=== PATIENT | female | born 1995 | race Caucasian/White ===

== ENCOUNTER 2017-12-04 05:37 | Day surgery (SDC) | payer OTHER ==
[2017-12-01 12:19] LABS: HEMATOCRIT 37.6 % (36.0-47.0); MEAN CORPUSCULAR HEMOGLOBIN 23.8 pg (27.0-33.4); MEAN CORPUSCULAR VOLUME 75 fl (80-97); PLATELET COUNT 251 10^3/uL (150-450); RED BLOOD COUNT 5.04 10^6/uL (3.72-5.28); RED CELL DISTRIBUTION WIDTH 15.6 % (11.5-14.0); WHITE BLOOD COUNT 4.7 10^3/uL (4.0-10.5)
[2017-12-01 12:20] LABS: APPEARANCE,URINE CLEAR; BILIRUBIN,URINE NEGATIVE (NEGATIVE); COLOR,URINE YELLOW; GLUCOSE, URINE NEGATIVE (NEGATIVE); KETONES,URINE NEGATIVE (NEGATIVE); LEUKOCYTE ESTERASE,URINE NEGATIVE (NEGATIVE); NITRITE,URINE NEGATIVE (NEGATIVE); PROTEIN,URINE NEGATIVE (NEGATIVE); URINE SPECIFIC GRAVITY 1.023; UROBILINOGEN,URINE NEGATIVE mg/dL (<2.0)
[2017-12-01 12:28] LABS: ALANINE AMINOTRANSFERASE 26 U/L (9-52); ALBUMIN 4.3 g/dL (3.5-5.0); ALKALINE PHOSPHATASE 42 U/L (38-126); ANION GAP 13 (5-19); ASPARTATE AMINO TRANSFERASE 17 U/L (14-36); BILIRUBIN,DIRECT 0.2 mg/dL (0.0-0.4); BILIRUBIN,TOTAL 0.6 mg/dL (0.2-1.3); BLOOD UREA NITROGEN 13 mg/dL (7-20); CARBON DIOXIDE 25 mmol/L (22-30); CHLORIDE 107 mmol/L (98-107); GLUCOSE 86 mg/dL (75-110); SODIUM 145.3 mmol/L (137-145); TOTAL PROTEIN 6.9 g/dL (6.3-8.2)
[~2017-12-04 05:37] MED LIST: CEFAZOLIN 1 GM/D5W RTU 1 GM/50 ML RTUPB IV PRN; LACTATED RINGERS 1000 ML IV PRN; LIDOCAINE 0.5% INJ-PF (5 MG/ML) 50 ML SDV SUBCUT PRN
[2017-12-04] MEDS ORDERED: BUPIVACAINE HCL 0.25 % INJ/PF (2.5 MG/1 ML) 30 ML VIAL ONE (06:31)
[2017-12-04] MEDS ORDERED: MIDAZOLAM 2 MG/2 ML INJ ONE (07:19)
[2017-12-04] MEDS ORDERED: DEXAMETHASONE SOD PHOSPHATE INJ 4 MG/1 ML VIAL ONE (07:19)
[2017-12-04] MEDS ORDERED: ONDANSETRON HCL INJ/PF 4 MG/2 ML SDV ONE (07:19)
[2017-12-04] MEDS ORDERED: FENTANYL CITRATE INJ/PF 100 MCG/2 ML AMPUL ONE (07:19)
[2017-12-04] MEDS ORDERED: PROPOFOL INJ 200 MG/20 ML VIAL IV ONE (07:19)
[2017-12-04] MEDS ORDERED: HYDROMORPHONE HCL INJ/PF 2 MG/ML AMPULE ONE (07:20)
[2017-12-04] MEDS ORDERED: PROMETHAZINE HCL INJ 25 MG/1 ML VIAL IV PRN ×3 (08:02→09:16)
[2017-12-04] MEDS ORDERED: MORPHINE SULFATE 10 MG/ML INJ IV PRN (08:02)
[2017-12-04] MEDS ORDERED: MEPERIDINE HCL/PF INJ 25 MG/1 ML DISP.SYRIN IV PRN (08:02)
[2017-12-04] MEDS ORDERED: OXYCODONE-ACETAMINOPHEN 5-325 MG TABLET PO PRN ×4 (08:02→09:15)
[2017-12-04] MEDS ORDERED: DIPHENHYDRAMINE HCL 50 MG/ML VIAL IV PRN (08:02)
[2017-12-04] MEDS ORDERED: FENTANYL CITRATE INJ/PF 100 MCG/2 ML AMPUL IV PRN ×3 (08:02)
[2017-12-04] MEDS ORDERED: MEPERIDINE HCL/PF INJ 25 MG/1 ML DISP.SYRIN ONE (08:40)
[2017-12-04] MEDS ORDERED: OXYCODONE-ACETAMINOPHEN 5-325 MG TABLET ONE (09:23)
[2017-12-04 10:29] VITALS: BP 109/65
--- NOTE | 2017-12-04 11:11 | OPERATIVE REPORT E ---
Operative Report NAME: MARYLOU GASCA : 1995 AGE: 22Y DATE OF SURGERY: 12/04/2017 ROOM: PREOPERATIVE DIAGNOSIS: Pelvic pain. POSTOPERATIVE DIAGNOSIS: Pelvic pain. There were no clinical findings. OPERATION: D and C, laparoscopy. SURGEON: BAKARI FLOWERS M.D. ANESTHESIA: General with 0.25% Marcaine. ESTIMATED BLOOD LOSS: 30 mL. PERTINENT HISTORY AND OPERATIVE FINDINGS: This is a 22-year-old, 1, para 1 female who had been having trouble over the last year with increasing amounts of pelvic pain, dyspareunia, and ultimately as part of the workup elected to go ahead and have a laparoscopy. At the time of surgery the vagina and vulva appeared to be normal. The cervix appeared to be normal. The uterus was normal shape and size. Both tubes were normal. The ovaries were normal bilaterally. The appendix appeared to be normal. The liver was a little bit increased in size and had a little bit of marbling, otherwise okay. PROCEDURE: The patient was brought into the OR, placed on the table in a supine position, inducted under general anesthesia. She was then repositioned in a dorsal lithotomy position, prepped and draped in a sterile fashion. A pelvic under anesthesia was performed after the bladder was emptied of about 50 mL of clear yellow urine. A bivalve speculum was inserted. The cervix was grasped on its anterior lip with a single-tooth tenaculum, sounded to 7 cm, dilated, and curetted with a small sharp curette. A HUMI manipulator was placed into the uterus and the bulb was inflated. This terminated this part of the procedure. Attention was turned towards the abdominal wall. Veress needle was introduced umbilically and carried through the various layers until the abdominal cavity was entered. Upon entering the abdominal cavity approximately 4 L of CO2 were injected under pressure, initially 4 cm of water going up to a pressure of 15 cm of water. Having established a pneumoperitoneum the Veress needle was removed. A small incision was made infraumbilically. Through this incision the trocar and sleeve were inserted. The trocar was removed and through the sleeve a laparoscope was inserted. A second incision was made suprapubically. Through this incision a trocar and sleeve were inserted. The trocar was removed. Through the sleeve a probe was inserted. There was some bleeding that occurred and at this point of time we went ahead and put the powerhouse attendant in and irrigated the pelvis for a better look. We then suctioned out the normal saline that we had used for irrigation. Pictures were taken with essentially negative findings. We did sweep the scope around to look at the bowel, the appendix, the liver, and the gallbladder. These all appeared to be normal, with the exception that the liver appeared to be somewhat mottled. This terminated the procedure. The excess saline was sucked out after irrigating one more time. As stated, everything appeared to be normal. The lower sleeve was removed. Having removed this there was no evidence of active bleeding. The CO2 was allowed to escape and the upper sleeve was removed. The incisions were injected with approximately 2.5 mL of 0.25% Marcaine in both the subumbilical and suprapubic incisions. The fascia was closed with interrupted 0 Vicryl. The skin edges were brought together in the subumbilical incision with a subcuticular 4-0 Prolene and in the suprapubic incision with interrupted 4-0 Prolene. Attention was turned back down to the pelvis. The HUMI manipulator was removed after removing the insufflated air. The pelvis was okay. This terminated the procedure. The patient had bandages applied. The patient was put back into the supine position and transferred to the recovery room after anesthesia was discontinued in satisfactory condition. DICTATING PHYSICIAN: BAKARI FLOWERS M.D. [id number] PHY#: [id number] ID: [id number] JOB#: [id number] ACCT: [id number] cc:BAKARI FLOWERS M.D. >
[2017-12-04] MEDS ORDERED: ROCURONIUM BROMIDE INJ 50 MG/5 ML VIAL IV ONE (15:10)
[2017-12-04] MEDS ORDERED: SUCCINYLCHOLINE CHLORIDE INJ 200 MG/10 ML VIAL ONE (15:10)
== END 2017-12-04 10:20 | disposition home or self-care (01) ==
LOC: OROUT 05:37
PROVIDERS: ATTEND Obstetrics & Gynecology
DX: N84.0 Polyp of corpus uteri (principal); R10.2 Pelvic and perineal pain; N94.10 Unspecified dyspareunia; J45.909 Unspecified asthma, uncomplicated
CPT/HCPCS: 36415; 85027; 81025; 80053; 81001; 88305 ×2; 49320; 58120; J2250; J0690; J3490; J1100; J3010; J2175; J1170; J0330; J2405; J2704; 840